=== PATIENT | male | born 2000 | race African-American/Black ===

== ENCOUNTER → 2021-01-03 | Outpatient (REF) | payer SELFPAY | LOC: M LAB REF 15:34 | PROVIDERS: ATTEND Physician Assistant | DX: R50.9 Fever, unspecified (principal) ==

== ENCOUNTER 2021-01-04 12:02 | Inpatient (IN) | payer SELFPAY ==
[~2021-01-04] VITALS: Ht 180.3 cm; Wt 78.6 kg
--- OUTSIDE RECORDS SUMMARY | 2021-01-04 13:19 | CCD ---
Author Author [facility] Address Unknown Phone Unavailable Support Name Relationship Address Phone SMC* Next Of Kin [address] [place] [address] JIM MONROE Next Of Kin [address] [place] [address] Re-disclosure Warning The records that you are about to access may contain information from federally-assisted alcohol or drug abuse programs. If such information is present, then the following federally mandated warning applies: This information has been disclosed to you from records protected by federal confidentiality rules (42 CFR part 2). The federal rules prohibit you from making any further disclosure of this information unless further disclosure is expressly permitted by the written consent of the person to whom it pertains or as otherwise permitted by 42 CFR part 2. A general authorization for the release of medical or other information is NOT sufficient for this purpose. The Federal rules restrict any use of the information to criminally investigate or prosecute any alcohol or drug abuse patient.The records that you are about to access may contain highly sensitive health information, the redisclosure of which is protected by Article 27-F of the [facility] Public Health law. If you continue you may have access to information: Regarding HIV / AIDS; Provided by facilities licensed or operated by the [facility] Office of Mental Health; or Provided by the [facility] Office for People With Developmental Disabilities. If such information is present, then the following [facility] mandated warning applies: This information has been disclosed to you from confidential records which are protected by state law. State law prohibits you from making any further disclosure of this information without the specific written consent of the person to whom it pertains, or as otherwise permitted by law. Any unauthorized further disclosure in violation of state law may result in a fine or nursing home sentence or both. A general authorization for the release of medical or other information is NOT sufficient authorization for further disc losure. Immunizations Vaccine Date Status Description Data Source(s) COVID-19 VACCINE Moderna 09/09/2020 12:00:00 AM EDT completed [facility] Vaccine Series Complete: YESThis Data wa s Submitted to [facility] Via [employer]. COVID-19 VACCINE Moderna 07/17/2020 12:00:00 AM EDT completed [facility]IS Vaccine Series Complete: NOThis Data was Submitted to [facility] [employer]. Medications No Information Insurance Providers Payer name Policy type / Coverage type Policy ID Covered constitution party ID Covered constitution party's relationship to webb Policy Webb Plan Information SELF PAY ONLY [id number] SP [id number] SELF PAY SP Problems, Conditions, and Diagnoses No Information Surgeries/Procedures No Information Results No Information Social History No Information
[2021-01-04] MEDS ORDERED: NS 1,000 ML IV ONE ×2 (13:20→16:50)
--- NOTE | 2021-01-04 13:41 | REP ---
INDICATION: DYSPNEA/COUGH. COMPARISON: None. TECHNIQUE: Two views FINDINGS: The lung duff are well inflated without infiltrate, effusion, atelectasis, pulmonary nodule or mass. Heart, mediastinal and hilar contours are normal. The aorta and airway were unremarkable. No pneumothorax. Bony thorax is unremarkable. There is no free air under the diaphragm. IMPRESSION: No acute cardiopulmonary change. <Electronically signed by Dawood Redmond > 01/04/21 [id number]
[2021-01-04 14:11] LABS: BASO % 0.3 % (0.0-1.0); EOS % 0.4 % (0.0-3.0); HEMATOCRIT 51.5 % (42.0-52.0); HEMOGLOBIN 17.3 g/dl (13.5-17.5); LYMPH # 1.3 10^3/uL (1.5-5.0); LYMPH % 18.1 % (24.0-44.0); MEAN CORPUSCULAR HEMOGLOBIN 28.1 pg (27.0-33.0); MEAN CORPUSCULAR HGB CONC 33.6 g/dl (32.0-36.5); MEAN CORPUSCULAR VOLUME 83.7 fl (80.0-96.0); MONO # 0.3 10^3/uL (0.0-0.8); MONO % 3.9 % (2.0-8.0); NEUTROPHILS # 5.4 10^3/uL (1.5-8.5); PLATELET COUNT, AUTOMATED 147 10^3/uL (150-450); RED BLOOD COUNT 6.15 10^6/uL (4.30-6.10)
[2021-01-04 14:22] LABS: INR 0.89; PROTHROMBIN TIME 12.4 SECONDS (12.7-14.5)
[2021-01-04 14:23] LABS: PARTIAL THROMBOPLASTIN TIME 26.5 SECONDS (25.9-37.0)
[2021-01-04 14:34] LABS: ERYTHROCYTE SEDIMENTATION RATE 3 mm/hr (0-15)
[2021-01-04 14:38] LABS: HEMOGLOBIN A1c 5.6 %
--- NOTE | 2021-01-04 16:37 | REP ---
INDICATION: ? glomerulonephritis. COMPARISON: None. TECHNIQUE: Grayscale and color sonography of the kidneys and bladder performed. FINDINGS: Right kidney is 12.4 x 5.8 x 6.4 cm. Its cortical echogenicity is increased compared to the adjacent liver. There is trace amount of fluid in the collecting system. I see no definite mass, cyst, stone or perinephric fluid. No hydronephrosis or hydroureter seen. The left kidney is 12.8 x 4.9 x 6.8 cm. Likewise its cortical echogenicity is increased compared to the liver. There is trace amount of fluid in the collecting system. There is no stone, cyst or solid mass. No Luba nephric fluid. Normal color flow in renal sinus. Bladder well filled. Ureteral jet phenomenon observed bilaterally. IMPRESSION: 1. Symmetric renal size which is normal trace amount of fluid in the collecting system with no hydronephrosis, hydroureter, stone, solid mass or cyst. No perinephric fluid on either side. 2. Kidney cortex is hyperechoic compared to the adjacent liver for both sides. This suggests some underlying medical renal disease. 3. Bladder grossly unremarkable. Bilateral ureteral jets were observed. <Electronically signed by Dawood Redmond > 01/04/21 [id number]
[2021-01-04 16:48] LABS: ALBUMIN 3.7 GM/DL (3.2-5.2); ALT/SGPT 494 U/L (12-78); BILIRUBIN,DIRECT 0.1 MG/DL (0.0-0.2); BILIRUBIN,TOTAL 0.5 MG/DL (0.2-1.0); BLOOD UREA NITROGEN 12 MG/DL (7-18); CARBON DIOXIDE LEVEL 26 MEQ/L (21-32); CHLORIDE LEVEL 100 MEQ/L (98-107); CK-MB VALUE MASS 157.9 NG/ML (<3.6); GLUCOSE, FASTING 100 MG/DL (70-100); LIPASE 70 U/L (73-393); POTASSIUM SERUM 4.2 MEQ/L (3.5-5.1); SODIUM LEVEL 132 MEQ/L (136-145); TOTAL PROTEIN 9.1 GM/DL (6.4-8.2); TROPONIN I 0.02 NG/ML (< 0.10)
[2021-01-04 17:34] LABS: CPK CREATINE PHOSPHOKINASE 69280 U/L (39-308); MB/CK RELATIVE INDEX 0.22 (< OR =4)
--- NOTE | 2021-01-04 17:39 | REP ---
INDICATION: elevated liver enzymes/n/v. COMPARISON: None. TECHNIQUE: Standard grayscale right upper quadrant sonography. FINDINGS: Liver is homogeneous in echotexture without focal hepatic mass, hepatomegaly, intrahepatic biliary dilatation or perihepatic ascites. Gallbladder is adequately filled and shows normal wall thickness of 1.8 mm. There is no stone, sludge or pericholecystic fluid. There is no sonographic Harris sign. Common duct is 4.2 mm without a filling defect and is normal. Pancreas is unremarkable. The right kidney is 12.2 x 5.3 x 5.6 cm. Its cortex is hyperechoic compared to the liver. There is mild splitting of the central renal sinus complex representing some minimal fluid but no gross hydronephrosis or hydroureter. No of visible mass or stone. No free fluid anywhere in the upper abdomen IMPRESSION: 1. Liver homogeneous without focal hepatic mass or biliary dilatation. No adjacent ascites. 2. Gallbladder without stones sludge or wall thickening. No sonographic Harris sign. 3. Common bile duct 4.2 mm and normal. 4. The pancreas appears unremarkable. 5. Renal cortex is hyperechoic, suggesting medical renal disease. There is small amount of fluid in the central sinus complex of the kidney but no gross hydronephrosis or hydroureter. No renal mass, cyst or stone visible. <Electronically signed by Dawood Redmond > 01/04/21 2103
[2021-01-04 18:14] LABS: RSV AMPLIFICATION NEGATIVE (NEGATIVE)
[2021-01-04] MEDS ORDERED: HOME MED LIST COMPLETE! XX SCH ×2 (18:35→19:00)
[2021-01-04] MEDS: NS 1,000 ML IV SCH (18:35)
--- NOTE | 2021-01-04 19:06 | HPEPDOC ---
General Date of Admission Jan 04, 2021 Date of Service: Jan 04, 2021 Chief Complaint The patient is a 20-year-old male admitted with a reason for visit of Red Spots On Skin, Dizzy, Lightheaded. History of Present Illness Mr. White is a 20 year old male history of obesity and prediabetes here with truncal rash and found to have rhabdomyolysis without kidney injury. Last Tuesday (12/29/20), patient felt ill. He had gastroenteritis with nausea/vomiting and diarrhea. It rapidly resolved. His had hung out with his friends afterwards. He was concerned that his friend may have had cross contamination with raw napier and the food. Then about two to three days ago, he noticed a rash on his chest that spread upwards to his shoulders and face. This rash was not painful or itchy. Is is small red papules. He came into the ED for evaluation. While here, he has been afebrile and vital signs stable[place] [address], [place] 1862, and ALT of 494. Patient tells me he used acetaminophen when he had gastroenteritis. Otherwise, he has not been working out lately since he has been working here. Before, he had exercised hard and lost 70lbs in 4months. His father had DM type 2 and of complications from DM type 2. He wanted to avoid diabetes and lost weight. He was obese prior, but now does not reach the obesity range. He has eaten less. He does not know if his family had r heumatologic disease and he denies any rheumatologic disease in himself. Patient will be admitted for rhabdomyolysis. Home Medications No Active Prescriptions or Reported Meds Allergies Coded Allergies: No Known Allergies (Unverified , 01/04/21) Past Medical History Medical History 1. Obesity 2. Pre-diabetes Surgical History Denies any past surgical history Family History Father: History of diabetes mellitus Social History * Smoker: Denies Alcohol: Denies Drugs: marijuana A-FIB/CHADSVASC A-FIB History Current/History of A-Fib/PAF?: No Review of Systems Constitutional: Denies: Chills, Fever Eyes: Denies: Vision change ENT: Denies: Sore Throat Skin: Reports: Rash (On chest that spread upwards) Pulmonary: Denies: Dyspnea, Cough Cardiovascular: Denies: Chest Pain Gastrointestinal: Denies: Abdominal Pain Genitourinary: Denies: Dysuria Musculoskeletal: Denies: Muscle Pain Neurological: Denies: Numbness Psych: Denies: Anxiety, Depression Physical Examination General Exam: Positive: Alert, Cooperative Eye Exam: Positive: EOMI; Negative: Sclera icteric ENT Exam: Positive: Atraumatic Neck Exam: Positive: Supple Chest Exam: Positive: Clear to auscultation; Negative: Rales, Rhonchi, Wheezing Heart Exam: Positive: Tachycardic, Regular Rhythm Abdomen Exam: Positive: Normal bowel sounds, Soft; Negative: Tenderness Extremity Exam: Negative: Edema Skin Exam: Positive: Rash (On chest, shoulders, and upper back) Neuro Exam: Positive: Normal Speech, Cranial Nerves 3-12 NL Psych Exam: Positive: Mental status NL, Anxiety Vital Signs Vital Signs Date Time Temp Pulse Resp B/P (MAP) Pulse Ox O2 Delivery O2 Flow Rate FiO2 01/04/21 16:21 99.4 105 18 128/74 (92) 100 Room Air Laboratory Data Labs 24H Laboratory Tests 2 01/04/21 13:20: Immature Granulocyte % (Auto) 0.3, Neutrophils (%) (Auto) 77.0H, Lymphocytes (%) (Auto) 18.1L, Monocytes (%) (Auto) 3.9, Eosinophils (%) (Auto) 0.4, Basophils (%) (Auto) 0.3, Neutrophils # (Auto) 5.4, Lymphocytes # (Auto) 1.3L, Monocytes # (Auto) 0.3, Eosinophils # (Auto) 0.0, Basophils # (Auto) 0.0, Nucleated Red Blood Cells % (auto) 0.0, Erythrocyte Sedimentation Rate 3, Prothrombin Time 12.4, Prothromb Time International Ratio 0.89, Activated Partial Thromboplast Time 26.5, Anion Gap 6L, Estimated Mean Plasma Glucose 114H, Hemoglobin A1c 5.6, Lactic Acid Level 1.7, Calcium Level 8.0L, Total Bilirubin 0.5, Direct Bilirubin 0.1, Aspartate Amino Transf (AST/SGOT) 1862H, Alanine Aminotransferase (ALT/SGPT) 494H, Alkaline Phosphatase 63, Total Creatine Kinase 08467V, Creatine Kinase MB 157.9H, Creatine Kinase MB Relative Index 0.22, Troponin I 0.02, Total Protein 9.1H, Albumin 3.7, Albumin/Globulin Ratio 0.7, Lipase 70L 01/04/21 14:12: Urine Color HEDY, Urine Appearance HAZY, Urine pH 6.0, Urine Specific [place] 1.025, Urine Protein 3+H, Urine Glucose (UA) NEGATIVE, Urine Ketones 1+H, Urine Blood 3+H, Urine Nitrite NEGATIVE, Urine Bilirubin NEGATIVE, Urine Urobilinogen 2.0H, Urine Leukocyte Esterase NEGATIVE, Urine WBC (Auto) 8H, Urine RBC (Auto) 1, Urine Hyaline Casts (Auto) 1, Urine Bacteria (Auto) NEGATIVE, Urine Squamous Epithelial Cells 0, Urine Mucus (Auto) SMALL, Urine Sperm (Auto) , Urine Myoglobin POSITIVE 01/04/21 17:18: Coronavirus (COVID-19)(PCR) NEGATIVE, Influenza Type A (RT-PCR) NEGATIVE, Influ adonis Type B (RT-PCR) NEGATIVE, Respiratory Syncytial Virus (PCR) NEGATIVE CBC/BMP Laboratory Tests 01/04/21 13:20 Assessment/Plan Mr. White is a 20 year old male history of obesity and prediabetes here with truncal rash and found to have rhabdomyolysis without kidney injury. Unclear etiology to patient's rhabdomyolysis. Possibly rheumatic in nature with the r dylan. Possibly viral in nature with the rash and history of gastroenteritis. Will order rheum myositis panel, enterovirus RNA, and HIV screen. Patient was concerned about cross contamination from raw pork product, will order trichinella. Will continue with aggressive hydration and encourage patient to take oral intake of fluids. If patient does have dermatomyositis, patient would need age appropriate screenings and glucocorticoids. Plan / VTE VTE Prophylaxis Ordered?: Yes Plan Plan 1. Rhabdomyolysis -Possibly rheumatic cause vs viral cause -Patient recently had gastroenteritis -Aggressive IVF to protect the kidneys -Pending dermatomyositis work up and viral work up. 2. Rash -Truncal, possibly shawl distribution on back -Possibly rheumatic vs viral -pending dermatomyositis work up and viral work up 3. Elevated AST and ALT -Most likely from rhabdomyolysis -Will check hepatitis panel -US liver unremarkable 4. Questionable renal disease -US kidney suggest medical renal disease -Would make sense with rhabdomyolysis, but creatinine is 0.9 and creatinine clearance is 147 -Monitor renal function -IVF to protect the kidney 5. DVT ppx -Lovenox Disposition: Pending improvement in CPK KATHY ACEVEDO DO Jan 04, 2021 19:06
[2021-01-04 19:23] LABS: C REACTIVE PROTEIN QUANTITATIV 1.64 MG/DL (0.00-0.30)
--- NOTE | 2021-01-04 20:33 | ECGEPIP ---
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
[2021-01-04 21:07] VITALS: BP 146/85
--- OUTSIDE RECORDS SUMMARY | 2021-01-04 22:33 | CCD ---
Author Author [facility] Address Unknown Phone Unavailable Support Name Relationship Address Phone SMC* Next Of Kin [address] [place] [address] JIM MONROE Next Of Kin [address] [place] [address] Re-disclosure Warning The records that you are [...] is protected by Article 27-F of the [facility] Public Health law. If you continue you may have access to information: Regarding HIV / AIDS; Provided by facilities licensed or operated by the [facility] Office of Mental Health; or Provided by the [facility] Office for People With Developmental Disabilities. If such information is present, then the following [facility] mandated warning applies: This information has [...] law may result in a fine or alf sentence or both. A general authorization for the release of medical or other information is NOT sufficient authorization for further disc losure. Immunizations Vaccine Date Status Description Data Source(s) COVID-19 VACCINE Moderna 09/09/2020 12:00:00 AM EDT completed [facility] Vaccine Series Complete: YESThis Data wa s Submitted to [facility] [employer]. COVID-19 VACCINE Moderna 07/17/2020 12:00:00 AM EDT completed [facility] Vaccine Series Complete: NOThis Data was Submitted to [facility] [employer]. Medications No Information Insurance Providers Payer name Policy type / Coverage type Policy ID Covered republican ID Covered republican's relationship to webb Policy Webb Plan Information SELF PAY ONLY [id number] SP [id number] SELF PAY SP Problems, Conditions, and Diagnoses No Information Surgeries/Procedures No Information Results No Information Social History No Information
[2021-01-05] MEDS: NS 1,000 ML IV SCH ×3 (03:11→18:35)
[2021-01-05 06:00] VITALS: BP 120/79
[2021-01-05 06:09] LABS: HEMATOCRIT 43.5 % (42.0-52.0); MEAN CORPUSCULAR HEMOGLOBIN 28.1 pg (27.0-33.0); MEAN CORPUSCULAR HGB CONC 33.6 g/dl (32.0-36.5); MEAN CORPUSCULAR VOLUME 83.8 fl (80.0-96.0); PLATELET COUNT, AUTOMATED 141 10^3/uL (150-450); RED BLOOD COUNT 5.19 10^6/uL (4.30-6.10); WHITE BLOOD COUNT 4.7 10^3/uL (4.0-10.0)
[2021-01-05 06:25] LABS: HEMOGLOBIN 14.6 g/dl (13.5-17.5)
[2021-01-05 07:17] LABS: ACETAMINOPHEN LEVEL < 2.0 UG/ML (10.0-30.0)
[2021-01-05 07:54] LABS: ALBUMIN 3.1 GM/DL (3.2-5.2); ALT/SGPT 451 U/L (12-78); BILIRUBIN,TOTAL 0.4 MG/DL (0.2-1.0); BLOOD UREA NITROGEN 10 MG/DL (7-18); CARBON DIOXIDE LEVEL 23 MEQ/L (21-32); CHLORIDE LEVEL 105 MEQ/L (98-107); CPK CREATINE PHOSPHOKINASE 38310 U/L (39-308); GLUCOSE, FASTING 89 MG/DL (70-100); POTASSIUM SERUM 4.8 MEQ/L (3.5-5.1); SODIUM LEVEL 135 MEQ/L (136-145); TOTAL PROTEIN 7.7 GM/DL (6.4-8.2)
[2021-01-05] MEDS: ENOXAPARIN 40MG/0.4ML SYRINGE (J1650 PER 10MG) SC SCH (09:20)
[2021-01-05 10:42] LABS: HEPATITIS B SURFACE ANTIGEN NEGATIVE (NEGATIVE)
--- NOTE | 2021-01-05 11:00 | IPNPDOC ---
Subjective Date Seen The patient was seen on 01/05/21. Subjective Chief Complaint/HPI Mr. White is a 20 year old male history of obesity and prediabetes here with truncal rash and found to have rhabdomyolysis without kidney injury. This morning, he denies any chest pain or dyspnea. Rash is still present. It is on shoulders and longterm down back. Also [place] mid [place] [address] Objective Physical Examination General Exam: Positive: Alert, Cooperative Eye Exam: Positive: EOMI; Negative: Sclera icteric ENT Exam: Positive: Atraumatic Neck Exam: Positive: Supple Chest Exam: Positive: Clear to auscultation; Negative: Rales, Rhonchi, Wheezing Heart Exam: Positive: Tachycardic, Regular Rhythm Abdomen Exam: Positive: Normal bowel sounds, Soft; Negative: Tenderness Extremity Exam: Negative: Edema Skin Exam: Positive: Rash (On chest, shoulders, and upper back) Neuro Exam: Positive: Normal Speech, Cranial Nerves 3-12 NL Psych Exam: Positive: Mental status NL, Anxiety Assessment /Plan Assessment Mr. White is a 20 year old male history of obesity and prediabetes here with truncal rash and found to have rhabdomyolysis without kidney injury. Unclear etiology to patient's rhabdomyolysis. Possibly rheumatic in nature with the rash. Possibly viral in nature with the rash and history of gastroenteritis. Will order rheum myositis panel, enterovirus RNA, and HIV screen. Patient was concerned about cross contamination from raw pork product, will order trichinella. Will continue with aggressive hydration and encourage patient to take oral intake of fluids. If patient does have dermatomyositis, patient would need age appropriate screenings and glucocorticoids. Plan/VTE VTE Prophylaxis Ordered?: Yes Plan 1. Rhabdomyolysis -Possibly rheumatic cause vs viral cause -Patient recently had gastroenteritis -Aggressive IVF to protect the kidneys -Pending dermatomyositis work up and viral work up. 2. Rash -Truncal, possibly shawl distribution on back -Possibly rheumatic vs viral -pending dermatomyositis work up and viral work up 3. Elevated AST and ALT -Most likely from rhabdomyolysis -Will check hepatitis panel -US liver unremarkable 4. Questionable renal disease -US kidney suggest medical renal disease -Would make sense with rhabdomyolysis, but creatinine is 0.9 and creatinine clearance is 147 (on admission) -Monitor renal function -IVF to protect the kidney 5. DVT ppx -Lovenox Disposition: Pending resolution of rhabdomyolysis VS, I&O, 24H, [facility] Vital Signs/I&O Vital Signs Date Time Temp Pulse Resp B/P (MAP) Pulse Ox O2 Delivery O2 Flow Rate FiO2 01/05/21 06:00 98.3 90 16 120/79 (93) 98 Room Air I&O- Last 24 Hours up to 6 AM 01/05/21 06:00 Intake Total 3380 ml Output Total 0 ml Balance 3380 ml Laboratory Data 24H LABS Laboratory Tests 2 01/04/21 13:20: Immature Granulocyte % (Auto) 0.3, Neutrophils (%) (Auto) 77.0H, Lymphocytes (%) (Auto) 18.1L, Monocytes (%) (Auto) 3.9, Eosinophils (%) (Auto) 0.4, Basophils (%) (Auto) 0.3, Neutrophils # (Auto) 5.4, Lymphocytes # (Auto) 1.3L, Monocytes # (Auto) 0.3, Eosinophils # (Auto) 0.0, Basophils # (Auto) 0.0, Nucleated Red Blood Cells % (auto) 0.0, Erythrocyte Sedimentation Rate 3, Prothrombin Time 12.4, Prothromb Time International Ratio 0.89, Activated Partial Thromboplast Time 26.5, Anion Gap 6L, Estimated Mean Plasma Glucose 114H, Hemoglobin A1c 5.6, Lactic Acid Level 1.7, Calcium Level 8.0L, Total Bilirubin 0.5, Direct Bilirubin 0.1, Aspartate Amino Transf (AST/SGOT) 1862H, Alanine Aminotransferase (ALT/SGPT) 494H, Alkaline Phosphatase 63, Total Creatine Kinase 66731V, Creatine Kinase MB 157.9H, Creatine Kinase MB Relative Index 0.22, Troponin I 0.02, C- Reactive Protein, Quantitative 1.64H, Total Protein 9.1H, Albumin 3.7, Albumin/Globulin Ratio 0.7, Lipase 70L 01/04/21 14:12: Urine Color HEDY, Urine Appearance HAZY, Urine pH 6.0, Urine Specific [place] 1.025, Urine Protein 3+H, Urine Glucose (UA) NEGATIVE, Urine Ketones 1+H, Urine Blood 3+H, Urine Nitrite NEGATIVE, Urine Bilirubin NEGATIVE, Urine Urobilinogen 2.0H, Urine Leukocyte Esterase NEGATIVE, Urine WBC (Auto) 8H, Urine RBC (Auto) 1, Urine Hyaline Casts (Auto) 1, Urine Bacteria (Auto) NEGATIVE, Urine Squamous Epithelial Cells 0, Urine Mucus (Auto) SMALL, Urine Sperm (Auto) , Urine Myoglobin POSITIVE 01/04/21 17:18: Coronavirus (COVID-19)(PCR) NEGATIVE, Influenza Type A (RT-PCR) NEGATIVE, Influenza Type B (RT-PCR) NEGATIVE, Respiratory Syncytial Virus (PCR) NEGATIVE 01/04/21 20:25: Acetaminophen Level < 2.0L, Hepatitis B Surface Antigen NEGATIVE 01/05/21 05:41: Nucleated Red Blood Cells % (auto) 0.0, Anion Gap 7L, Calcium Level 8.0L, Total Bilirubin 0.4, Aspartate Amino Transf (AST/SGOT) 1227H, Alanine Aminotransferase (ALT/SGPT) 451H, Alkaline Phosphatase 48, Total Creatine Kinase 54216C, Total Protein 7.7, Albumin 3.1L, Albumin/Globulin Ratio 0.7 CBC/BMP Laboratory Tests 01/04/21 13:20 01/05/21 05:41 KATHY ACEVEDO DO Jan 05, 2021 11:00
[2021-01-05 11:08] LABS: HEPATITIS C VIRUS ABY INDEX 0.1 INDEX (<0.8)
[2021-01-05 11:09] LABS: HEPATITIS B CORE ANTIBODY IGM NEGATIVE (NEGATIVE)
[2021-01-05 11:10] LABS: HIV 1&2 SCREEN CENTAUR NEGATIVE (NEGATIVE)
[2021-01-05 14:00] VITALS: BP 125/82
[2021-01-05 22:00] VITALS: BP 136/86
[2021-01-06] MEDS: NS 1,000 ML IV SCH ×3 (03:03→16:24)
[2021-01-06 06:00] VITALS: BP 130/81
[2021-01-06 06:53] LABS: HEMOGLOBIN 13.9 g/dl (13.5-17.5); MEAN CORPUSCULAR HEMOGLOBIN 27.9 pg (27.0-33.0); MEAN CORPUSCULAR HGB CONC 33.1 g/dl (32.0-36.5); MEAN CORPUSCULAR VOLUME 84.3 fl (80.0-96.0); PLATELET COUNT, AUTOMATED 156 10^3/uL (150-450); RED BLOOD COUNT 4.98 10^6/uL (4.30-6.10)
[2021-01-06 07:53] LABS: ALT/SGPT 501 U/L (12-78); BILIRUBIN,TOTAL 0.5 MG/DL (0.2-1.0); BLOOD UREA NITROGEN 10 MG/DL (7-18); CALCIUM LEVEL 8.1 MG/DL (8.5-10.1); CARBON DIOXIDE LEVEL 26 MEQ/L (21-32); CHLORIDE LEVEL 105 MEQ/L (98-107); CPK CREATINE PHOSPHOKINASE 21050 U/L (39-308); CREATININE FOR GFR 0.64 MG/DL (0.70-1.30); GLUCOSE, FASTING 88 MG/DL (70-100); POTASSIUM SERUM 4.8 MEQ/L (3.5-5.1); SODIUM LEVEL 136 MEQ/L (136-145); TOTAL PROTEIN 7.4 GM/DL (6.4-8.2)
[2021-01-06] MEDS: ENOXAPARIN 40MG/0.4ML SYRINGE (J1650 PER 10MG) SC SCH (09:17)
[2021-01-06 14:00] VITALS: BP 135/84
--- NOTE | 2021-01-06 18:44 | CR.PDOC ---
General Date of Consultation: Jan 06, 2021 Attending Physician: Adelfo Collazo MD Consultation REASON FOR INFECTIOUS DISEASE CONSULTATION: gastroenteritis rash and elevated CPK HISTORY OF PRESENT ILLNESS: This is a 20-year-old gentleman presents to [facility] ER with chief complaint of post gastroenteritis and development of a rash. History started back last Tuesday when he started to have abdominal pain with loss of appetite, nausea and vomiting . Two days later on Tuesday where he started to also have body aches, muscle soreness as well as joint pains throughout, associated headaches as well as a subjective fever , profuse sweating. He presented to [facility] urgent care where he was diagnosed with gastroenteritis after his Covid test came back negative and was given IV fluids and sent home and told to take Tylenol and rest. Patient states that his belly pain loss of appetite and vomiting did eventually improve however he still experiences good amount of body aches soreness. On morning he noticed a nonpruritic rash on his chest which started to spread to his bilateral shoulders up to his face particularly on his cheeks and forehead. Then the rash started to spread down towards his back into the abdominal region. Thereafter he decided to go to the ER to get further assessed. He was noted to have elevated CPK 60K level however normal renal function and was started on aggressive IV fluids. He has been afebrile throughout the hospitalization . Infectious disease was consulted for further management and etiology of illness ALLERGIES: Dandelions severe reaction affecting eye, Dove soap HOME MEDICATIONS: None PAST MEDICAL HISTORY: None PAST SURGICAL HISTORY: None FAMILY HISTORY: Father: . Had DM 1.5, hypertension, CAD Mother: 41 years old. Healthy 4 sisters all healthy aged 10, 11, 19, 22 SOCIAL HISTORY: Occasional EtOH, smokes marijuana. Experimented once with a cigarette but has not had one since that 1 time. denies IV drug use. Patient works in the [employer] at [employer] full-time. Lives with an uncle currently Has 1 pet (lab) SEXUAL HISTORY: Currently single last sexually active 1 year ago with monogamous partner (female Never been tested for STDs. Denies ever having been tested for HIV or hep C Denies history of MSM TRAVEL HISTORY: Denies any recent travel outside of the state or country. Covid vaccinated with Moderna x2 REVIEW OF SYSTEMS: General: Denies shaking chills,unintentional weight loss. Reports feeling feverish however did not have a thermometer for measurement HEENT: Denies changes in vision including blurry vision or double vision, or hearing loss nasal congestion or sore throat. Initially also had a headache is now resolved Heart: Denies chest pain or chest pressure or discomfort, or palpitations, or lower extremity edema Pulm: Denies cough or sputum production or shortness of breath GI: Had some sporadic bouts of looser consistency BMs, denies any blood in stool. Initially had some nausea and vomiting which did resolve. Psych: Denies sadness or loss of interest in doing things, no thoughts of self- harm or suicidal ideation PHYSICAL EXAMINATION: VITAL SIGNS: Please see below. GENERAL: The patient is a well-developed, well-nourished in no apparent distress. AAOx3 Breast bilateral gynecomastia NEURO: No focal neurological deficits. Strength 5 out of 5 throughout. Sensation 2 out of 4 throughout. HEENT: Head is normocephalic and atraumatic. Extraocular muscles are intact. Pupils are equal, round, and reactive to light and accommodation. Nares appears normal. Moist mucous membranes. PULM: Clear to auscultation bilaterally. No wheezing, rhonchi or rales appreciated. CARDIO: Normal S1, S2. no significant murmurs, gallops, rubs or clicks. No signs of peripheral edema ABDOMEN: Soft, nontender, and nondistended. Normal bowel sounds. No significant organomegaly appreciated. EXTREMITIES/SKIN: No cyanosis, clubbing. Maculopapular rash hyperpigmented on the chest, abdomen, back, bilateral cheeks on the face and forehead.multiple stretch morrison on abdomen MOTOR strength muscle upper and lower extremities 5/5 bilaterally symmetrical LABORATORY DATA: Please see below. IMPRESSION AND PLAN: Viral gastroenteritis with rash. He likely had post viral myositis with a rash and possible culprits include adenovirus, enteroviruses, HIV, hepatitis B and C, cytomegalovirus, parvovirus B19 among other viral etiologies. It is unlikely that its related to hep B, C HIV is all those have been negative. Enterovirus RNA PCR was ordered via blood however no stool samples sent for GI pathogens , now has been ordered. Patient does not have any signs of Gottron sign or heliotrope rash this is less likely to be inflammatory myopathy. Bacterial infections associated with myositis include syphilis from treponema pallidum, Lyme disease from Borrelia burgdorferi. Tickborne panel is pending currently and recommend ordering syphilis screen. Elevated AST and ALT. This is likely muscular in origin and not from liver and sequela of skeletal muscle breakdown. LFTs have been trending down will recommend to continue to monitor. liver ultrasound was negative, HIV HEP a/B /C negative Myopathy CPK dropped from 60, 000 to 20,000. No renal issues on IVF cr normal. Patient drinking and eating well Plan DC home and FU with ID in 7-10 days to review rest of labs , most likely illness all viral in nature Obtain GI panel prior to DC if possible Thank you for this consultation Vital Signs/I&O Vital Signs Date Time Temp Pulse Resp B/P (MAP) Pulse Ox O2 Delivery O2 Flow Rate FiO2 01/06/21 14:00 98.7 83 18 135/84 (101) 99 Room Air I&O- Last 24 Hours up to 6 AM 01/06/21 06:00 Intake Total 4650 ml Output Total 1050 ml Balance 3600 ml Laboratory Data Labs 24H Laboratory Tests 2 01/06/21 06:32: Nucleated Red Blood Cells % (auto) 0.0, Anion Gap 5L, Calcium Level 8.1L, Total Bilirubin 0.5, Aspartate Amino Transf (AST/SGOT) 931H, Alanine Aminotransferase (ALT/SGPT) 501H, Alkaline Phosphatase 48, Total Creatine Kinase 05453V, Total Protein 7.4, Albumin 3.0L, Albumin/Globulin Ratio 0.7 CBC/BMP Laboratory Tests 01/06/21 06:32 Allergies Coded Allergies: No Known Allergies (Unverified , 01/04/21) Home Medications No Active Prescriptions or Reported Meds Jordon Haji DO Jan 06, 2021 18:44 Adelfo Collazo MD Jan 06, 2021 21:32
--- NOTE | 2021-01-07 17:36 | DS.PDOC ---
Discharge Summary General Date of Admission Jan 04, 2021 at 18:24 Date of Discharge 01/06/21 Discharge Summary PROCEDURES PERFORMED DURING STAY: [None]. DISCHARGE DIAGNOSES: Viral gastroenteritis with myositis and rhabdomyolysis Rash due to viral infection COMPLICATIONS/CHIEF COMPLAINT: Rash,Rhabdomyolysis. HOSPITAL COURSE: Mr. White is a 20 year old male presented to the hospital for evaluation of truncal rash and found to have rhabdomyolysis without kidney injury. Patient reported that he had abdominal pain vomiting and diarrhea 4 days prior to appearance of the rash which had resolved by the time the rash came on. He also reported generalized body aches and muscle pains. his HIV hepatitis and syphilis serology were negative. Covid was negative. Tickborne disease serology have been sent which are pending. Also serology for rheumatological disease like polymyositis dermatomyositis have been sent. Patient's ESR and CRP were normal. Patient was evaluated by infectious disease and it was felt that patient had Enterovirus gastroenteritis with rash and myositis causing rhabdomyolysis. Patient was managed with aggressive hydration with appropriate decrease in creatinine phosphokinase. Symptomatically patient felt much better with resolution his symptoms and improvement in the rash. He was discharged home in a stable and improving condition. DISCHARGE MEDICATIONS: Please see below. ALLERGIES: Please see below. PHYSICAL EXAMINATION ON DISCHARGE: VITAL SIGNS: Please see below. General Exam: Positive: Alert, Cooperative Eye Exam: Positive: EOMI; Negative: Sclera icteric ENT Exam: Positive: Atraumatic Neck Exam: Positive: Supple Chest Exam: Positive: Clear to auscultation; Negative: Rales, Rhonchi, Wheezing Heart Exam: Positive: Tachycardic, Regular Rhythm Abdomen Exam: Positive: Normal bowel sounds, Soft; Negative: Tenderness Extremity Exam: Negative: Edema Skin Exam: Positive: Rash (On chest, shoulders, and upper back) Neuro Exam: Positive: Normal Speech, Cranial Nerves 3-12 NL Psych Exam: Positive: Mental status NL, Anxiety LABORATORY DATA: Please see below. ACTIVITY: [As tolerated]. DIET: Regular DISPOSITION: 01 Home, Self-Care. DISCHARGE INSTRUCTIONS: Dr. Collazo in 2 weeks PMD in 1 week ITEMS TO FOLLOWUP ON ON OUTPATIENT: Follow-up on pending immunological tests for dermatomyositis and polymyositis panel Follow-up on tickborne disease serology ; Anaplasma Babesia and ehrlichiosis Follow-up on enterovirus and PCR Follow-up on regional antibody DISCHARGE CONDITION: [Stable]. TIME SPENT ON DISCHARGE: 35 minutes. Vital Signs/I&Os Vital Signs Date Time Temp Pulse Resp B/P (MAP) Pulse Ox O2 Delivery O2 Flow Rate FiO2 01/06/21 14:00 98.7 83 18 135/84 (101) 99 Room Air I&O- Last 24 Hours up to 6 AM 01/07/21 06:00 Intake Total 2320 ml Output Total 400 ml Balance 1920 ml Laboratory Data Labs 24H Laboratory Tests 2 01/06/21 18:40: Syphilis Serology NONREACTIVE Discharge Medications No Active Prescriptions or Reported Meds Allergies Coded Allergies: No Known Allergies (Unverified , 01/04/21) Evette Martínez MD Jan 07, 2021 17:36
== END 2021-01-06 19:08 | disposition home or self-care (01) | DRG 351 ==
LOC: M ED 12:02 → M ED INP 18:24 → M MSPAV 21:03
PROVIDERS: ADMIT Internal Medicine; ATTEND Internal Medicine Nephrology
DX: M62.82 Rhabdomyolysis (principal); A08.4 Viral intestinal infection, unspecified; M60.89 Other myositis, multiple sites; Z20.822 Contact with and (suspected) exposure to COVID-19

== ENCOUNTER → 2021-01-14 | Outpatient (CLI) | payer OTHER, SELFPAY ==
[2021-01-14 13:48] LABS: ALBUMIN 3.6 GM/DL (3.2-5.2); ALT/SGPT 229 U/L (12-78); BILIRUBIN,TOTAL 0.4 MG/DL (0.2-1.0); BLOOD UREA NITROGEN 23 MG/DL (7-18); CALCIUM LEVEL 9.3 MG/DL (8.5-10.1); CARBON DIOXIDE LEVEL 28 MEQ/L (21-32); CHLORIDE LEVEL 106 MEQ/L (98-107); CREATININE FOR GFR 0.82 MG/DL (0.70-1.30); GLUCOSE, FASTING 88 MG/DL (70-100); POTASSIUM SERUM 4.4 MEQ/L (3.5-5.1); SODIUM LEVEL 139 MEQ/L (136-145); TOTAL PROTEIN 7.9 GM/DL (6.4-8.2)
== END ==
LOC: M PLALAB 09:07
PROVIDERS: ATTEND Student in an Organized Health Care Education/Training Program
DX: M60.009 Infective myositis, unspecified site (principal)

== ENCOUNTER → 2021-04-13 | Outpatient (REF) | LOC: M LABSMTC 10:21 | PROVIDERS: ATTEND Family Medicine | DX: Z20.822 Contact with and (suspected) exposure to COVID-19 (principal) ==

== ENCOUNTER → 2021-05-18 | Outpatient (CLI) | payer BC ==
[2021-05-18 16:24] LABS: APPEARANCE, URINE CLEAR (CLEAR); BACTERIA, URINE AUTO NEGATIVE (NEGATIVE); BILIRUBIN, URINE AUTO NEGATIVE (NEGATIVE); BLOOD, URINE BLOOD NEGATIVE (NEGATIVE); COLOR, URINE STRAW (YELLOW); GLUCOSE, URINE (UA) AUTO NEGATIVE (NEGATIVE); KETONE, URINE AUTO NEGATIVE (NEGATIVE); LEUKOCYTE ESTERASE, URINE AUTO NEGATIVE (NEGATIVE); NITRITE, URINE AUTO NEGATIVE (NEGATIVE); PROTEIN, URINE AUTO NEGATIVE (NEGATIVE); RBC, URINE AUTO 0 /HPF (0-3); SPECIFIC GRAVITY URINE AUTO 1.015 (1.002-1.035); SQUAMOUS EPITHELIAL CELL UR AU 0 /HPF (0-6); UROBILINOGEN, URINE AUTO 0.2 mg/dL (0.0-2.0); WBC, URINE AUTO 0 /HPF (0-3)
[2021-05-18 17:01] LABS: HEMOGLOBIN A1c 5.5 %
[2021-05-18 17:37] LABS: HEPATITIS B SURFACE ANTIBODY NEGATIVE (POSITIVE); HEPATITIS C VIRUS ABY INDEX 0.3 INDEX (<0.8); HIV 1&2 SCREEN CENTAUR NEGATIVE (NEGATIVE)
== END ==
LOC: M LAB 15:33
PROVIDERS: ATTEND Student in an Organized Health Care Education/Training Program
DX: Z11.3 Encounter for screening for infections with a predominantly sexual mode of transmission (principal); Z13.1 Encounter for screening for diabetes mellitus; R19.8 Other specified symptoms and signs involving the digestive system and abdomen

== ENCOUNTER → 2021-06-29 | Outpatient (REF) | LOC: M EMP 14:55 | PROVIDERS: ATTEND Family Medicine | DX: Z11.52 Encounter for screening for COVID-19 (principal); Z20.822 Contact with and (suspected) exposure to COVID-19 ==

== ENCOUNTER → 2021-07-10 | Outpatient (REF) | payer BC ==
[2021-07-10 14:03] LABS: INFLUENZA A AMPLIFICATION POSITIVE (NEGATIVE); INFLUENZA B AMPLIFICATION NEGATIVE (NEGATIVE)
== END ==
LOC: M LAB REF 12:07
PROVIDERS: ATTEND Physician Assistant
DX: R50.9 Fever, unspecified (principal); M79.10 Myalgia, unspecified site

== ENCOUNTER 2021-12-06 16:00 | Emergency (ER) | payer OTHER, BC ==
[~2021-12-06] VITALS: Ht 182.9 cm; Wt 90.8 kg
[2021-12-06 16:01] VITALS: BP 145/64
[2021-12-06] MEDS ORDERED: BACITRACIN OINTMENT 30GM TUBE TOP ONE (16:45)
== END 2021-12-06 17:10 | disposition home or self-care (01) ==
LOC: M ED 16:00
DX: T23.171A Burn of first degree of right wrist, initial encounter (principal); T31.0 Burns involving less than 10% of body surface; X10.2XXA Contact with fats and cooking oils, initial encounter

== ENCOUNTER → 2022-06-15 | Outpatient (REF) | payer BC | LOC: M LAB REF 12:03 | PROVIDERS: ATTEND Physician Assistant Medical | DX: R50.9 Fever, unspecified (principal) ==

== ENCOUNTER 2023-11-24 17:36 | Emergency (ER) | payer SELFPAY | END 2023-11-24 17:41 | disposition left against medical advice (07) | LOC: M ED 17:36 | DX: Z53.21 Procedure and treatment not carried out due to patient leaving prior to being seen by health care provider (principal) ==

== ENCOUNTER 2024-09-13 10:25 | Emergency (ER) | payer BC, SELFPAY ==
[~2024-09-13] VITALS: Ht 182.9 cm; Wt 100.3 kg
[2024-09-13 14:20] VITALS: TEMP 97.5
[2024-09-13 15:43] VITALS: BP 138/85; O2SAT 100
== END 2024-09-13 15:50 | disposition home or self-care (01) ==
LOC: M ED 10:25
DX: M72.2 Plantar fascial fibromatosis (principal); F12.10 Cannabis abuse, uncomplicated